=== PATIENT | female | born 1990 | race Hispanic/Latino ===

== ENCOUNTER 2017-07-03 20:34 | Emergency (ER) | payer OTHER ==
[2017-07-03 20:58] LABS: APPEARANCE,URINE Clear (CLEAR); BILIRUBIN,URINE Negative (NEGATIVE); COLOR,URINE Yellow (YELLOW); GLUCOSE, URINE (UA) Negative (NEGATIVE); HCG,QUAL RESULT POSITIVE (NEGATIVE); KETONES,URINE >=160 mg/dL (NEGATIVE); LEUKOCYTE ESTERASE ,URINE Negative (NEGATIVE); NITRATE,URINE Negative (NEGATIVE); OCCULT BLOOD,URINE Negative (NEGATIVE); PROTEIN,URINE Negative (NEGATIVE)
[2017-07-03] MEDS ORDERED: SODIUM CHLORIDE 0.9% 1000ML 1,000 ML IV ONE (21:04)
[2017-07-03] MEDS ORDERED: ONDANSETRON HCL 4 MG/2 ML VIAL ONE (21:04)
[2017-07-03 21:09] LABS: BASOPHILS % (AUTO) 1.1 % (0.0-5.0); EOSINOPHILS % (AUTO) 0.4 % (0.0-8.0); HEMATOCRIT 37.5 % (36-48); LYMPHOCYTES % (AUTO) 22.9 % (21.0-51.0); MEAN CORPUSCULAR HEMOGLOBIN 31.5 pg (27.0-33.0); MEAN CORPUSCULAR HGB CONC 34.8 g/dL (32.0-36.0); MEAN CORPUSCULAR VOLUME 90.8 fL (79-99); MONOCYTES % (AUTO) 5.6 % (3.0-13.0); NUCLEATED RED BLOOD CELLS 0.1 % (0.0-0.19); PLATELET COUNT (AUTO) 163 K/uL (130-400); RED BLOOD CELL COUNT(AUTO) 4.14 MIL/uL (4.00-5.50); RED CELL DISTRIBUTION WIDTH 12.5 % (11.0-15.5); WHITE BLOOD COUNT (AUTO) 8.4 K/uL (4.8-10.8)
[2017-07-03 21:17] LABS: CREATININE 0.6 mg/dL (0.5-1.5); POTASSIUM 3.3 mmol/L (3.5-5.1)
[2017-07-03] MEDS ORDERED: POTASSIUM CHLORIDE 20 MEQ ERTAB PO ONE (22:23)
== END 2017-07-03 23:34 | disposition home or self-care (01) ==
LOC: EDH 20:34
DX: O26.891 Other specified pregnancy related conditions, first trimester (principal); R10.31 Right lower quadrant pain; R10.32 Left lower quadrant pain; Z72.0 Tobacco use; Z3A.08 8 weeks gestation of pregnancy
CPT/HCPCS: 36415; 76770; 76801; 80048; 81003; 81025; 82150; 83690; 84702; 85025; 96361; 96374; 99285; J2405; J7030

== ENCOUNTER 2018-12-15 02:17 | Emergency (ER) | payer OTHER ==
[2018-12-15] MEDS ORDERED: ACETAMINOPHEN EXTRA STRENGTH 500 MG TABLET ONE (02:32)
[2018-12-15] MEDS ORDERED: TETANUS/DIPHTHERIA TOXOID [ADULT] 0.5 ML VIAL IM ONE (02:32)
[2018-12-15] MEDS ORDERED: IBUPROFEN 600 MG TABLET ONE (02:32)
== END 2018-12-15 02:58 | disposition home or self-care (01) ==
LOC: EDH 02:17
DX: S61.305A Unspecified open wound of left ring finger with damage to nail, initial encounter (principal); S00.81XA Abrasion of other part of head, initial encounter; Y08.89XA Assault by other specified means, initial encounter; Y93.89 Activity, other specified; Y92.89 Other specified places as the place of occurrence of the external cause; Y99.8 Other external cause status
CPT/HCPCS: 90471; 90714

== ENCOUNTER 2019-02-28 08:18 | Emergency (ER) | payer OTHER ==
[2019-02-28] MEDS ORDERED: PREDNISONE 20 MG TABLET ONE (08:31)
[2019-02-28] MEDS ORDERED: DIPHENHYDRAMINE HCL 25 MG CAPSULE ONE (08:31)
== END 2019-02-28 09:08 | disposition home or self-care (01) ==
LOC: EDH 08:18
DX: L23.2 Allergic contact dermatitis due to cosmetics (principal); Z72.0 Tobacco use
CPT/HCPCS: 99283; Q0163

== ENCOUNTER 2020-06-16 07:58 | Emergency (ER) | payer BC ==
[2020-06-16] MEDS ORDERED: ACETAMINOPHEN EXTRA STRENGTH 500 MG TABLET ONE (08:09)
[2020-06-16 08:35] LABS: BASOPHILS % (AUTO) 0.3 % (0.0-5.0); EOSINOPHILS % (AUTO) 0.5 % (0.0-8.0); HEMATOCRIT 39.6 % (36-48); LYMPHOCYTES % (AUTO) 4.1 % (21.0-51.0); MEAN CORPUSCULAR HEMOGLOBIN 31.7 pg (27.0-33.0); MEAN CORPUSCULAR HGB CONC 34.6 g/dL (32.0-36.0); MEAN CORPUSCULAR VOLUME 91.7 fL (79-99); MONOCYTES % (AUTO) 5.2 % (3.0-13.0); NEUTROPHILS % (AUTO) 89.4 % (40.0-77.0); PLATELET COUNT (AUTO) 190 K/uL (130-400); RED BLOOD CELL COUNT(AUTO) 4.32 MIL/uL (4.00-5.50); WHITE BLOOD COUNT (AUTO) 15.9 K/uL (4.8-10.8)
[2020-06-16 08:38] LABS: BILIRUBIN,URINE NEGATIVE (NEGATIVE); COLOR,URINE YELLOW (YELLOW); GLUCOSE, URINE (UA) NEGATIVE (NEGATIVE); KETONES,URINE >=80 mg/dL (NEGATIVE); LEUKOCYTE ESTERASE ,URINE LARGE (NEGATIVE); NITRATE,URINE NEGATIVE (NEGATIVE); OCCULT BLOOD,URINE SMALL (NEGATIVE); PROTEIN,URINE 30 mg/dL (NEGATIVE)
[2020-06-16 08:39] LABS: HCG,QUAL RESULT NEGATIVE (NEGATIVE)
[2020-06-16 08:40] LABS: APPEARANCE,URINE CLOUDY (CLEAR)
[2020-06-16 08:47] LABS: CARBON DIOXIDE 24 mmol/L (21-32); CHLORIDE 98 mmol/L (101-111); CREATININE 0.8 mg/dL (0.5-1.5); GLOMERULAR FILTR. RATE CALC 91 mL/min (>60); GLUCOSE,RANDOM 127 mg/dL (70-105); POTASSIUM 3.7 mmol/L (3.5-5.1); SODIUM SERUM 135 mmol/L (136-145); UREA NITROGEN, BLOOD 7 mg/dL (7-18)
[2020-06-16 08:49] LABS: INR 1.05 (0.85-1.15); PROTHROMBIN TIME 11.2 SEC (9.6-11.6)
[2020-06-16 08:50] LABS: PARTIAL THROMBOPLASTIN TIME 28.9 SEC (26.3-35.5)
[2020-06-16] MEDS ORDERED: CEFTRIAXONE SODIUM 2 GM VIAL ONE (08:50)
[2020-06-16] MEDS ORDERED: SODIUM CHLORIDE 0.9% 1000ML 1,000 ML IV ONE ×2 (08:51→12:04)
[2020-06-16 09:03] LABS: BACTERIA,URINE Few /HPF (None Seen); RBC,URINE 0-1 /HPF (0-1); WBC,URINE 51-100 /HPF (0-1)
[2020-06-16 09:08] LABS: ALANINE AMINOTRANSFERASE 20 U/L (12-78); ASPARTATE AMINOTRANSFERASE 24 U/L (10-37); BILIRUBIN,TOTAL 0.8 mg/dL (0.2-1.0); CREATINE KINASE, TOTAL 74 U/L (21-232); MYOGLOBIN 19 ng/mL (10-92); TOTAL PROTEIN, SERUM 8.4 g/dL (6.0-8.3); TROPONIN I < 0.04 ng/mL (0.00-0.06)
[2020-06-16] MEDS ORDERED: KETOROLAC TROMETHAMINE 30MG/ML ONE (12:04)
== END 2020-06-16 15:46 | disposition home or self-care (01) ==
LOC: EDH 07:58
DX: N10 Acute pyelonephritis (principal); J45.909 Unspecified asthma, uncomplicated; Z72.0 Tobacco use
CPT/HCPCS: 36415; 76770; 80053; 81001; 81025; 82550; 83605; 83874; 84145; 84484; 85025; 85610; 85730; 87040 ×2; 87077; 87088; 87186; 96361; 96365; 96366; 96375; 99285; J0696; J1885; J7030 ×2

== ENCOUNTER 2020-12-17 22:14 | Emergency (ER) | payer BC ==
[~2020-12-17] VITALS: Ht 160 cm; Wt 58.5 kg
[2020-12-17] MEDS ORDERED: ONDANSETRON ODT 4MG TAB SL ONE (23:00)
[2020-12-17 23:05] LABS: APPEARANCE,URINE Clear (CLEAR); BILIRUBIN,URINE Negative (NEGATIVE); COLOR,URINE Yellow (YELLOW); GLUCOSE, URINE (UA) Negative (NEGATIVE); KETONES,URINE Negative (NEGATIVE); LEUKOCYTE ESTERASE ,URINE Trace (NEGATIVE); NITRATE,URINE Negative (NEGATIVE); OCCULT BLOOD,URINE Negative (NEGATIVE); PROTEIN,URINE Negative (NEGATIVE)
[2020-12-17 23:09] LABS: HCG,QUAL RESULT POSITIVE (NEGATIVE)
[2020-12-17 23:22] LABS: BACTERIA,URINE Few /HPF (None Seen); MUCUS,URINE Few LPF (None Seen); RBC,URINE 0-1 /HPF (0-1); WBC,URINE 0-1 /HPF (0-1)
[2020-12-17] MEDS ORDERED: PREN-61 PO (23:25)
[2020-12-17] MEDS ORDERED: ONDA4TAB10 PO (23:25)
[2020-12-17 23:53] VITALS: BP 116/75
== END 2020-12-17 23:57 | disposition home or self-care (01) ==
LOC: EDH 22:14
DX: O21.9 Vomiting of pregnancy, unspecified (principal); Z3A.01 Less than 8 weeks gestation of pregnancy; Z79.899 Other long term (current) drug therapy
CPT/HCPCS: 81001; 81025; 87804

== ENCOUNTER 2021-03-24 18:47 | Emergency (ER) | payer BC ==
[~2021-03-24] VITALS: Ht 160 cm; Wt 54.4 kg
[~2021-03-24 18:47] MED LIST: ONDA4TAB10 PO; PREN-61 PO
[2021-03-24] MEDS ORDERED: DIPHENHYDRAMINE HCL 25 MG CAPSULE ONE (19:23)
[2021-03-24] MEDS ORDERED: FAMOTIDINE 20MG TAB ONE (19:23)
[2021-03-24] MEDS ORDERED: DEXAMETHASONE SOD PHOSPHATE 4 MG/ML 1ML VIAL ONE (19:25)
[2021-03-24] MEDS ORDERED: FAMOTIDINE 20MG TAB PO ONE (19:30)
[2021-03-24] MEDS ORDERED: DEXAMETHASONE SOD PHOSPHATE 4 MG/ML 1ML VIAL IM SCH (19:30)
[2021-03-24] MEDS ORDERED: DIPHENHYDRAMINE HCL 25 MG CAPSULE PO ONE (19:30)
[2021-03-24 19:35] VITALS: BP 128/73
[2021-03-24] MEDS ORDERED: METH4TAB3 PO (20:18)
[2021-03-24] MEDS ORDERED: FAMO40TA75 PO (20:18)
[2021-03-24] MEDS ORDERED: HYDR-3421 PO (20:18)
== END 2021-03-24 20:47 | disposition home or self-care (01) ==
LOC: EDH 18:47
DX: T78.49XA Other allergy, initial encounter (principal); I10 Essential (primary) hypertension; J45.909 Unspecified asthma, uncomplicated; F32.A Depression, unspecified; F17.210 Nicotine dependence, cigarettes, uncomplicated; Z79.52 Long term (current) use of systemic steroids; Z79.899 Other long term (current) drug therapy; X58.XXXA Exposure to other specified factors, initial encounter
CPT/HCPCS: 96372; 99284; J1100; Q0163

== ENCOUNTER 2023-07-23 11:33 | Emergency (ER) | payer BC, OTHER ==
[~2023-07-23] VITALS: Ht 160 cm; Wt 59.4 kg
[~2023-07-23 11:33] MED LIST changes: +FAMO40TA75 PO; +HYDR-3421 PO; +METH4TAB3 PO
[2023-07-23 11:40] VITALS: BP 131/100; PULSE 78; RESP 18
[2023-07-23] MEDS: DiphenhydrAMINE HCL 50 MG/ML VIAL IV ONE (12:55)
[2023-07-23] MEDS: PROCHLORPERAZINE 10MG/2ML INJ IV ONE (12:55)
[2023-07-23] MEDS ORDERED: ACET160S2 PO (14:20)
== END 2023-07-23 14:26 | disposition home or self-care (01) ==
LOC: EDH 11:33
DX: G43.909 Migraine, unspecified, not intractable, without status migrainosus (principal); J45.909 Unspecified asthma, uncomplicated; I10 Essential (primary) hypertension; F17.200 Nicotine dependence, unspecified, uncomplicated
CPT/HCPCS: 99284; 96374; 96375; J1200; J0780

== ENCOUNTER 2024-05-26 17:37 | Emergency (ER) | payer SELFPAY ==
[~2024-05-26] VITALS: Ht 160 cm; Wt 54.4 kg
[~2024-05-26 17:37] MED LIST changes: +ACET160S2 PO; +ONDA-243 PO; -ONDA4TAB10 PO
--- NOTE | 2024-05-26 17:55 | ERN ---
ED Note History of Present Illness Stated Complaint: 4WKS PREG,HAVING CONTRACTIONS,BLEEDING Chief Complaint: Abdominal Pain in Time Seen by MD: 17:46 Dictation: PATIENT IS A 33-YEAR-OLD FEMALE STATES SHE IS APPROXIMATE FOUR WEEKS AND IS HAVING VAGINAL BLEEDING WITH CRAMPING ONSET TWO DAYS PRIOR TO ARRIVAL. NO CARE AND NO RESEARCH ASST DOCTOR. Allergies: Coded Allergies: No Known Drug Allergies (Unverified Allergy, Unknown, 12/15/18) Home Meds Active Scripts Acetaminophen (Tylenol Elixir) 325 Mg/10.15 Ml Solution, 500 MG PO QIDP PRN for HEADACHE, #30 TAB Prov:ADWOA QUIGLEY MD 07/23/23 Famotidine (Pepcid) 40 Mg Tablet, 40 MG PO DAILY for 5 Days, #5 TAB Prov:JAI ADAN 03/24/21 Methylprednisolone (Medrol) 4 Mg Tab.ds.pk, 4 MG PO DAILY PRN for as directed for 5 Days, #1 PACK Prov:JAI ADAN 03/24/21 Hydroxyzine HCl (Hydroxyzine HCl) 25 Mg Tablet, 25 MG PO BID for 5 Days, #10 TAB Prov:JAI ADAN 03/24/21 Vit No.78/Iron/FA (Prenatabs FA Tablet) 1 Each Tablet, 1 EACH PO DAILY, #100 TAB Prov:OSMAN GORDON 12/17/20 Ondansetron (Ondansetron Odt) 4 Mg Tab.rapdis, 4 MG PO TID, #30 TAB Prov:OSMAN GORDON 12/17/20 Past Medical History Past Medical History: Asthma, Depression, Hypertension Surgical History: None Social History: Smokers : 3 Para: 2 RN Note Reviewed/Agreed w/PFSH: Yes Review of System Dictation CONSTITUTIONAL: NEGATIVE EXCEPT FOR HPI HEAD/FACE: NEGATIVE EXCEPT FOR HPI EENT: NEGATIVE EXCEPT FOR HPI RESPIRATORY: NEGATIVE EXCEPT FOR HPI GASTROINTESTINAL/ABDOMINAL: NEGATIVE EXCEPT FOR HPI GENITOURINARY: NEGATIVE EXCEPT FOR HPI VAGINAL BLEEDING WITH CRAMPING MUSCULOSKELETAL: NEGATIVE EXCEPT FOR HPI INTEGUMENTARY: NEGATIVE EXCEPT FOR HPI NEUROLOGICAL/PSYCH: NEGATIVE EXCEPT FOR HPI HEMATOLOGIC/LYMPHATIC: NEGATIVE EXCEPT FOR HPI ALL SYSTEMS NEGATIVE, EXCEPT NOTED ABOVE. 13 POINT REVIEW OF SYSTEMS ASSESSED AND ALL NEGATIVE EXCEPT FOR ABOVE. Initial Vital Sign VS Vital Signs Date Time Temp Pulse Resp B/P (MAP) Pulse Ox O2 Delivery O2 Flow Rate FiO2 05/26/24 17:50 98.6 92 16 138/87 99 Room Air 0 05/26/24 17:59 21 Physical Exam Dictation VITAL SIGNS REVIEWED MOE RN IN ROOM WITH THE EXAM GENERAL APPEARANCE: ALERT, ORIENTED X 3, NO ACUTE DISTRESS, WELL DEVELOPED, NOURISHED. HEAD AND FACE: NON-TRAUMATIC. EYES: PERRL, PINK CONJUNCTIVAS, EYELID NO TRAUMA, ANTERIOR CHAMBER WITH ARCUS SENILIS. EARS: PINNAS INTACT AND NO SIGNS OF TRAUMA OR ERYTHEMA EAR CANALS CLEAR AND NO DISCHARGE TM NO ERYTHEMA NOSE: NO DISCHARGE, NO BLEEDING. OROPHARYNX: MOUTH NORMAL, TONGUE PINK, PHARYNX CLEAR,NO ERYTHEMA, TONSILS NO EXUDATES, NO ABSCESSES NOTED, MUCOUS MEMBRANE MOIST NECK: SUPPLE, NON-TENDER, NO THYROMEGALY, NO MASSES, NO JVD, NO BRUITS BREAST:DEFERRED CHEST:NO TENDERNESS, NO CREPITUS, NO PARADOXICAL MOVEMENT, NO RETRACTIONS LUNGS:CLEAR, WELL-VENTILATED, SYMMETRIC, NO RALES, NO WHEEZING, NO RHONCHI, NO STRIDOR, GOOD BREATH SOUNDS BILATERALLY HEART: REGULAR RATE, REGULAR RHYTHM, NO MURMUR, NO GALLOPS VASCULAR: NO PERIPHERAL EDEMA, ABDOMEN: SOFT, POSITIVE BOWEL SOUNDS, NONDISTENDED, NO GUARDING, NONTENDER, NO REBOUND, NO MASSES NO HEPATOMEGALY, NO SPLENOMEGALY, NO GANN'S SIGN, NO HERNIAS. RECTAL: DEFERRED GENITAL: PATIENT IN LITHOTOMY POSITION, EXTERNAL EXAM IS NEGATIVE NO LESIONS NO RASH, INTERNAL EXAM SHOWS OPEN OS WITH APPROXIMATELY 3-4 ML DARK BLOOD NO TISSUE NO CMT TENDERNESS NEUROLOGICAL: NORMAL SPEECH, MOTOR FUNCTION INTACT, SENSORY FUNCTION INTACT MUSCULOSKELETAL: NECK NONTENDER, FULL RANGE OF MOTION, BACK NONTENDER, FULL RANGE OF MOTION, EXTREMITIES: NONTENDER, FULL RANGE OF MOTION SKIN: COLOR PINK, DRY, NO TURGOR, NO RASH, NO LACERATIONS, NO ABRASIONS, NO CONTUSIONS. LYMPHATIC: DEFERRED Results (Laboratory/Radiology) Laboratory/Radiology Laboratory Tests Test 05/26/24 18:36 White Blood Count 10.3 K/uL (4.8-10.8) Red Blood Count 4.10 MIL/uL (4.00-5.50) Hemoglobin 13.0 g/dL (12.0-16.0) Hematocrit 38.7 % (36-48) Mean Corpuscular Volume 94.4 fL (79-99) Mean Corpuscular Hemoglobin 31.7 pg (27.0-33.0) Mean Corpuscular Hemoglobin Concent 33.6 g/dL (32.0-36.0) Red Cell Distribution Width 11.6 % (11.0-15.5) Platelet Count 166 K/uL (130-400) Mean Platelet Volume 11.6 fL (7.5-10.5) H Immature Granulocyte % (Auto) 0.3 % (0-1) Neutrophils (%) (Auto) 75.9 % (40.0-77.0) Lymphocytes (%) (Auto) 16.3 % (21.0-51.0) L Monocytes (%) (Auto) 6.6 % (3.0-13.0) Eosinophils (%) (Auto) 0.5 % (0.0-8.0) Basophils (%) (Auto) 0.4 % (0.0-5.0) Neutrophils # (Auto) 7.8 K/uL (1.8-7.7) H Lymphocytes # (Auto) 1.7 K/uL (1.0-4.8) Monocytes # (Auto) 0.7 K/uL (0.1-1.0) Eosinophils # (Auto) 0.05 K/uL (0.00-0.70) Basophils # (Auto) 0.04 K/uL (0.00-0.20) Absolute Immature Granulocyte (auto 0.03 K/uL (0-1) Nucleated Red Blood Cells 0.0 % (0.0-0.19) Sodium Level 141 mmol/L (136-145) Potassium Level 3.7 mmol/L (3.5-5.1) Chloride Level 104 mmol/L (101-111) Carbon Dioxide Level 29 mmol/L (21-32) Blood Urea Nitrogen 7 mg/dL (7-18) Creatinine 0.7 mg/dL (0.5-1.0) Glomerular Filtration Rate Calc 118 mL/min (>90) Random Glucose 109 mg/dL (70-105) H Total Calcium 8.6 mg/dL (8.5-10.1) Human Chorionic Gonadotropin, Quant 587 mIU/mL (0-5) H OB ULTRASOUND DEMONSTRATES NO IUP SEEN AT THIS TIME. NO SAC Labs Reviewed?: Yes ED Course ED Course Orders Procedure Category Date Status Time Cbc With Differential LAB 05/26/24 Complete 17:52 Hcg,Quantitative LAB 05/26/24 Complete 17:52 Us Ob <14 Weeks US 05/26/24 Taken 17:52 Type And Screen BBK 05/26/24 In Process 17:52 Basic Metabolic Panel LAB 05/26/24 Complete 17:52 Acetaminophen 500mg PHA 05/26/24 Complete Tab (Tylenol 500mg T 18:00 *Nursing CPOE 05/26/24 Transmitted Communication: 17:52 Current Medications Medications (Trade) Dose Ordered Sig/Kailee Route PRN Reason Start Time Stop Time Status Last Admin Dose Admin Acetaminophen (TYLenol 500MG TAB) 1,000 mg ONCE ONCE PO 05/26/24 18:00 05/26/24 18:01 DC 05/26/24 18:13 Vital Signs Date Time Temp Pulse Resp B/P (MAP) Pulse Ox O2 Delivery O2 Flow Rate FiO2 05/26/24 19:06 78 18 126/71 97 Room Air* 0 21 05/26/24 17:59 98.8 84 20 120/65 98 Room Air* 0 21 05/26/24 17:50 98.6 92 16 138/87 99 Room Air 0 Medical Decision Making MDM MDM: DIFFERENTIAL DIAGNOSIS: MISCARRIAGE/INCOMPLETE MISCARRIAGE/BLEEDING IN EARLY /ELECTROLYTE IMBALANCE/DEHYDRATION RATIONALE: TESTS CONSIDERED AND ORDERED SECONDARY TO SHARED DECISION MAKING INCLUDE: ULTRASOUND/LABS PREVIOUS OUTSIDE RECORDS REVIEWED: OLD ER VISITS. REVIEWED RISK OF COMPLICATION AND/OR MORBIDITY OR MORTALITY OF PATIENT MANAGEMENT: NONE MEDICATIONS-PER MEDICATION RECONCILIATION NEED FOR HOSPITALIZATION: PATIENT DOES NOT MEET CRITERIA FOR HOSPITALIZATION. NONE NEED FOR EMERGENCY MAJOR/MINOR SURGERY: NO THERE ARE NO SOCIAL CONCERNS WITH THIS PATIENT. NO CARE, NO RESEARCH ASST D OCTOR PRESCRIPTION DRUG MANAGEMENT NONE PRESCRIPTIONS WILL INCLUDE SYMPTOMATIC CARE PATIENT'S PRIOR EXTERNAL MEDICAL RECORDS FROM OTHER ER VISITS WERE REVIEWED BY ME INDICATED. PRIOR TESTING AND RESULTS FROM PREVIOUS VISITS WERE REVIEWED. PRIOR TESTS WERE TAKEN INTO ACCOUNT WITH MEDICAL DECISION MAKING AND RESOURCE UTILIZATION, INDEPENDENT HISTORIAN/HISTORIANS WERE USED TO OBTAIN COMPLETE MEDICAL HISTORY. I INDEPENDENTLY INTERPRETED THE TEST THAT WERE PERFORMED, RESULTS WERE REVIEWED BY ME AND CONSIDERED FINDINGS ON RADIOLOGY IF ORDERED. MEDICAL MANAGEMENT AND EXAMINATION INTERPRETATION DISCUSSIONS WERE HAD BY ME WITH OTHER QUALIFIED HEALTHCARE PROFESSIONALS INDICATED FOR THE PATIENT'S CARE. DX & DISP Disposition: Discharge Departure Impression: Primary Impression: Vaginal bleeding before 22 weeks gestation Condition: Stable Additional Instructions: FOLLOW-UP WITH PRIMARY CARE PROVIDER IN 1 TO 2 DAYS. TAKE MEDICATIONS DIRECTED HERE IN THE EMERGENCY ROOM. OKAY TO CONTINUE HOME MEDICATIONS UNLESS OTHERWISE DISCUSSED DURING YOUR VISIT IN THE EMERGENCY ROOM TODAY. RETURN TO YOUR NEAREST EMERGENCY ROOM IF SYMPTOMS WORSEN OR IF THERE IS NO IMPROVEMENT. CALL 911 IF YOU NEED IMMEDIATE ASSISTANCE. TAKE TYLENOL [id number] NEEDED AND IF NO CONTRAINDICATIONS ARE PRESENT. INCREASE ORAL HYDRATION. A WOUND CULTURE OR URINE CULTURE WAS ORDERED HERE IN THE EMERGENCY ROOM DEPARTMENT PLEASE FOLLOW-UP WITH PRIMARY CARE PROVIDER AND ADVISE THEM TO GET REPEAT PORTS FROM OUR FACILITY. IF YOU HAD ANY GILBERTO WRAP/SPLINTS THAT WERE APPLIED HERE, PLEASE DO NOT REMOVE THEM UNTIL YOU SEE YOUR PRIMARY CARE OR SPECIALTY. START VITAMINS, [id number]. TAKE TYLENOL ONLY FOR PAIN. NO [id number] MEDICATIONS EXCEPT TYLENOL UNTIL CLEARED BY YOUR RESEARCH ASST DOCTOR. NO ALCOHOL, NO TOBACCO. PELVIC REST UNTIL CLEARED BY YOUR RESEARCH ASST DOCTOR. Referrals: NONE (PCP) Time of Disposition: 19:50 I have reviewed the case, and I agree with, Diagnosis and Plan TISHA GÓMEZ NP May 26, 2024 17:54
[2024-05-26 17:59] VITALS: TEMP 98.8
[2024-05-26] MEDS: acetaMINOPHEN 500 MG TABLET PO ONE (18:13)
[2024-05-26 18:48] LABS: BASOPHILS # (AUTO) 0.04 K/uL (0.00-0.20); BASOPHILS % (AUTO) 0.4 % (0.0-5.0); EOSINOPHILS # (AUTO) 0.05 K/uL (0.00-0.70); EOSINOPHILS % (AUTO) 0.5 % (0.0-8.0); HEMATOCRIT 38.7 % (36-48); IMMATURE GRANULOCYTE ABSOLUTE 0.03 K/uL (0-1); LYMPHOCYTES # (AUTO) 1.7 K/uL (1.0-4.8); LYMPHOCYTES % (AUTO) 16.3 % (21.0-51.0); MEAN CORPUSCULAR HEMOGLOBIN 31.7 pg (27.0-33.0); MEAN CORPUSCULAR HGB CONC 33.6 g/dL (32.0-36.0); MEAN CORPUSCULAR VOLUME 94.4 fL (79-99); MONOCYTES # (AUTO) 0.7 K/uL (0.1-1.0); MONOCYTES % (AUTO) 6.6 % (3.0-13.0); NEUTROPHILS # (AUTO) 7.8 K/uL (1.8-7.7); NEUTROPHILS % (AUTO) 75.9 % (40.0-77.0); PLATELET COUNT (AUTO) 166 K/uL (130-400); RED CELL DISTRIBUTION WIDTH 11.6 % (11.0-15.5); WHITE BLOOD COUNT (AUTO) 10.3 K/uL (4.8-10.8)
[2024-05-26 18:59] LABS: CREATININE 0.7 mg/dL (0.5-1.0); POTASSIUM 3.7 mmol/L (3.5-5.1)
[2024-05-26 19:06] VITALS: BP 126/71; PULSE 78; RESP 18; O2SAT 97
--- NOTE | 2024-05-26 19:08 | NUR ---
PATIENT PROVIDED CUP FOR HYDRATION
--- NOTE | 2024-05-26 20:01 | HMCIMG ---
ULTRASOUND OF THE PELVIS ULTRASOUND ABD VASCULAR LIMITED INDICATION: Pelvic pain COMPARISONS: None TECHNIQUE: Transabdominal real-time sonographic images were acquired earlier, and subsequently made available for review. FINDINGS: The uterus measures 9.6 x 4.7 x 6.1 cm. The uterus is normal in echotexture and contour. The endometrial thickness measures 13.0 mm. The right ovary measures 2.9 x 2.5 x 2.6 cm. The right ovary is normal in size, shape and echogenicity. No right adnexal masses demonstrated. Color Doppler flow is normal throughout the right ovary. Spectral Doppler analysis demonstrates a normal waveform pattern. The left ovary measures 2.1 x 1.9 x 2.4 cm. The left ovary is normal in size, shape and echogenicity. No left adnexal masses demonstrated. Color Doppler flow is normal throughout the left ovary. Spectral Doppler analysis demonstrates a normal waveform pattern. No free pelvic fluid demonstrated. IMPRESSION: No acute pelvic abnormality noted. No evidence for intrauterine .
== END 2024-05-26 19:53 | disposition home or self-care (01) ==
LOC: EDH 17:37
DX: O20.9 Hemorrhage in early pregnancy, unspecified (principal); F17.200 Nicotine dependence, unspecified, uncomplicated; I10 Essential (primary) hypertension; J45.909 Unspecified asthma, uncomplicated; R10.2 Pelvic and perineal pain; Z3A.01 Less than 8 weeks gestation of pregnancy
CPT/HCPCS: 36415; 76801; 80048; 84702; 85025; 86850; 86900; 86901; 99284